=== PATIENT | female | born 1980 | race Caucasian/White ===

== ENCOUNTER 2017-05-17 09:12 | Inpatient (IN) | payer MEDICAID ==
[2017-05-17] MEDS ORDERED: Sodium Chloride 0.9% 10 ML Syringe FLUSH PRN (09:47)
[2017-05-17] MEDS ORDERED: Lactated Ringers 1,000 ML IV ONE (09:50)
--- NOTE | 2017-05-17 09:57 | PCM.LDHP ---
L&D History of Present Illness - General Date of Service: 05/17/17 Admit Problem/Dx: Patient Status Order with Admit Dx/Problem 05/17/17 09:47 Patient Status [ADT] Routine Admission Diagnosis/Problem Admission Diagnosis/Problem Source of Information: Patient History Limitations: Reports: No Limitations - History of Present Illness Improves with: Reports: None Worsens with: Reports: None Associated Symptoms: Reports: N - Related Data Allergies/Adverse Reactions: Allergies Allergy/AdvReac Type Severity Reaction Status Date / Time latex Allergy Hives Verified 07/24/14 13:00 meperidine HCl [From Demerol] Allergy Hives Verified 07/24/14 13:00 Home Medications: Home Meds * Vitamin 2 tab PO DAILY 12/26/13 [History] Triamcinolone Acetonide [Triamcinolone Acetonide 0.1% Crm] 15 gm .XX DAILY PRN 07/15/14 [History] Docusate Sodium [Colace] 100 mg PO TIDMEALS 05/15/17 [History] Social & Family History - Tobacco Use Smoking Status *Q: Current Every Day Smoker Years of Tobacco use: 17 Used Tobacco, but Quit: No Second Hand Smoke Exposure: Yes - Alcohol Use Days Per Week of Alcohol Use: 0 - Recreational Drug Use Recreational Drug Use: Yes Drug Use in Last 12 Months: Yes Recreational Drug Type: Reports: Marijuana/Hashish Recreational Drug Use Frequency: Socially H&P Review of Systems - Review of Systems: Review Of Systems: See Below General: Reports: No Symptoms HEENT: Reports: No Symptoms Pulmonary: Reports: No Symptoms Cardiovascular: Reports: No Symptoms Gastrointestinal: Reports: No Symptoms Genitourinary: Reports: No Symptoms Musculoskeletal: Reports: No Symptoms Skin: Reports: No Symptoms Psychiatric: Reports: No Symptoms Neurological: Reports: No Symptoms Hematologic/Lymphatic: Reports: No Symptoms Immunologic: Reports: No Symptoms L&D Exam - Exam Exam: See Below - OB Specific Contraction Intensity: Moderate Movement: Active Heart Tones: Present Presentation: Vertex - Pugh Score Pugh Score Cervix Position: Anterior Pugh Score Consistency: Soft Pugh Score Effacement: >80% Pugh Score Dilation: 3-4 cm Pugh Score Infant's Station: -1 ,0 Pugh Score Total: 11 - Exam General: Alert, Oriented HEENT: PERRLA, Conjunctiva Clear, EACs Clear, EOMI, Hearing Intact, Mucosa Moist & [place], Nares Patent, Normal Nasal Septum, Posterior Pharynx Clear, TMs Clear Neck: Supple, Trachea Midline Lungs: Clear to Auscultation, Normal Respiratory Effort Cardiovascular: Regular Rate, Regular Rhythm GI/Abdominal Exam: Normal Bowel Sounds, Soft, Non-Tender, No Organomegaly, No Distention, No Abnormal Bruit, No Mass, Pelvis Stable Rectal Exam: Normal Exam, Normal Rectal Tone Genitourinary: Normal external exam, Normal bimanual exam, Normal speculum exam Back Exam: Normal Inspection, Full Range of Motion Extremities: Normal Inspection, Normal Range of Motion, Non-Tender, No Pedal Edema, Normal Capillary Refill Skin: Warm, Dry, Intact Neurological: Cranial Nerves Intact, Reflexes Equal Bilateral Psychiatric: Alert, Normal Affect, Normal Mood - Problem List (1) SNOMED Code(s): 67439118 ICD Code: Z34.90 - ENCNTR FOR SUPRVSN OF NORMAL , UNSP, UNSP TRIMESTER Status: Acute Current Visit: Yes Qualifiers: Weeks of gestation: 40 weeks Qualified Code(s): Z3A.40 - 40 weeks gestation of (2) Positive GBS test SNOMED Code(s): 0303309921645 ICD Code: B95.1 - STREPTOCOCCUS, GROUP B, CAUSING DISEASES CLASSD ELSWHR Status: Acute Priority: High Current Visit: Yes Problem List Initiated/Reviewed/Updated: Yes Orders Last 24hrs: Active Orders 24 hr Category Date Time Status Patient Status [ADT] Routine ADT 05/17/17 09:47 Ordered Communication Order [RC] ASDIRECTED Care 05/17/17 09:47 Ordered Heart Tones [RC] PER UNIT ROUTINE Care 05/17/17 09:47 Ordered Local Anesthetic Infusion Pump [RC] ASDIRECTED Care 05/17/17 09:50 Ordered Notify Provider Vital Signs [RC] PRN Care 05/17/17 09:47 Ordered Notify Provider [RC] PRN Care 05/17/17 09:47 Ordered OB Check [OM.PC] Click to Edit Care 05/17/17 09:35 Ordered PCEA Epidural [RC] ASDIRECTED Care 05/17/17 09:50 Ordered Up ad Maria T [RC] ASDIRECTED Care 05/17/17 09:47 Ordered Vital Signs [RC] PER UNIT ROUTINE Care 05/17/17 09:47 Ordered CBC WITH AUTO DIFF [HEME] Routine Lab 05/17/17 09:40 Received DRUG SCREEN, URINE [URCHEM] Routine Lab 05/17/17 09:40 Received UA W/MICROSCOPIC [URIN] Routine Lab 05/17/17 09:40 Received Lactated Ringers [Ringers, Lactated] 1,000 ml Med 05/17/17 09:50 Ordered IV .BOLUS Penicillin G Potassium [Pfizerpen] 2.5 millunits Med 05/17/17 14:00 Active Sodium Chloride 0.9% [Normal Saline] 50 ml IV Q4H Penicillin G Potassium [Pfizerpen] 5 millunits Med 05/17/17 10:00 Active Sodium Chloride 0.9% [Normal Saline] 50 ml IV ONETIME Sodium Chloride 0.9% [Saline Flush] Med 05/17/17 09:47 Ordered 10 ml FLUSH ASDIRECTED PRN Epidural Catheter Management [OM.PC] Routine Oth 05/17/17 09:50 Ordered Saline Lock Insert [OM.PC] Routine Oth 05/17/17 09:47 Ordered Resuscitation Status Routine Resus Stat 05/17/17 09:47 Ordered Medication Orders Penicillin G Potassium 5 (millunits/ Sodium Chloride) 50 mls @ 100 mls/hr IV ONETIME ONE Stop: 05/17/17 10:29 Penicillin G Potassium 2.5 (millunits/ Sodium Chloride) 50 mls @ 100 mls/hr IV Q4H SHELBI Lactated Ringer's (Ringers, Lactated) 1,000 mls @ 999 mls/hr IV .BOLUS ONE Stop: 05/17/17 10:50 Sodium Chloride (Saline Flush) 10 ml FLUSH ASDIRECTED PRN PRN Reason: Keep Vein Open Assessment/Plan Comment:: 05/17/2017 36 yo at 40 0/7 gestational weeks presented to L&D in active labor SVE-4-5/90/-1 bulgy bag of carr GBS positive Plan- Monitor labor Monitor FHTs Patient may have an epidural per her request PCN G starting now for GBS positive Anticipate and plan for a vaginal delivery.
[2017-05-17] MEDS ORDERED: Penicillin G Potassium 5 MILLUNITS in Sodium Chloride 0.9% 50 ML IV ONE (10:00)
[2017-05-17] MEDS ORDERED: Lactated Ringers 1,000 ML IV SCH (11:30)
--- NOTE | 2017-05-17 12:21 | PCM.PNLD ---
Labor Progress Note - VS & Meds Vital Signs: Last Vital Signs Temp 36.5 C 05/17/17 09:45 Pulse 70 05/17/17 10:44 Resp 18 05/17/17 10:44 BP 117/72 05/17/17 10:44 Pulse Ox 98 05/17/17 10:44 Active Medications: Current Medications Penicillin G Potassium 2.5 (millunits/ Sodium Chloride) 50 mls @ 100 mls/hr IV Q4H SHELBI Oxytocin/Sodium Chloride (Pitocin In Ns 20 Units/1,000 Ml) 20 unit in 1,000 mls @ 6 mls/hr IV TITRATE SHELBI; 2 MUNITS/MIN PRN Reason: Protocol Sodium Chloride (Saline Flush) 10 ml FLUSH ASDIRECTED PRN PRN Reason: Keep Vein Open Last Admin: 05/17/17 11:03 Dose: 10 ml Discontinued Medications Penicillin G Potassium 5 (millunits/ Sodium Chloride) 50 mls @ 100 mls/hr IV ONETIME ONE Stop: 05/17/17 10:29 Last Admin: 05/17/17 09:52 Dose: 100 mls/hr Lactated Ringer's (Ringers, Lactated) 1,000 mls @ 999 mls/hr IV .BOLUS ONE Stop: 05/17/17 10:50 Last Admin: 05/17/17 09:37 Dose: 999 mls/hr - Uterine Contractions Uterine Monitoring Mode: External [place] Contraction Frequency (min): 5 Contraction Duration (sec): 60 Contraction Intensity: Strong Uterine Resting Tone: Soft - Monitoring Monitor Mode: External Ultrasound Heart Rate (FHR) Variability: Moderate (6-25 bmp) Accelerations: Present, 15x15 Decelerations: None - Vaginal Exam Dilation (cm): 5-6 Effacement (Percent): 80 Station: -1 Cervical Position: Midposition Sterile Vaginal Exam Performed By: Mona Diaz Vaginal Exam Comment: Still can push head away - Labor Progress (Free Text) Labor Progress: 05/17/2017 Progressing nicely in labor. Epidural in place and patient is comfortable. First dose of antibiotics in for GBS positive SVE-5-6/80/-1--2 Plan- Continue to monitor labor contractions still irregular Continue to monitor heart tones Start pitocin to better apply head to cervix then will AROM Continue Epidural for pain management Continue PCN G for GBS status Anticipate and plan for a vaginal delivery
[2017-05-17] MEDS ORDERED: Ondansetron 4 MG/2 ML SDV IVPUSH PRN (12:26)
[2017-05-17] MEDS ORDERED: Lanolin 100% Cream 40 GM Tube TOP PRN (15:18)
[2017-05-17] MEDS ORDERED: Acetaminophen 325 MG Tab PO PRN (15:18)
[2017-05-17] MEDS ORDERED: Ibuprofen 600 MG Tab PO PRN (15:18)
[2017-05-17] MEDS ORDERED: Acetaminophen 325 MG Tab, 50 Tab Bulk Bottle PO PRN (15:48)
[2017-05-17] MEDS ORDERED: Ibuprofen 200 MG Tab, 24 Tab Bulk Bottle PO PRN (15:48)
--- NOTE | 2017-05-17 15:58 | PCM.DEL ---
L & D Note - General Info Date of Service: 05/17/17 Mother's Due Date: 05/17/17 - Delivery Note Labor: Spontaneous Delivery Method: Spontaneous Vaginal Delivery-Single Delivery Mode: Spontaneous Presentation: Right Occiput Posterior (ROP) Nuchal Cord: Present (times two), Reduced Anesthesia Type: None Amniotic Fluid Description: Meconium Stained Episiotomy Type: None Laceration: None Placenta: Intact, Spontaneous Cord: 3 Vessels Estimated Blood Loss: 300 Resuscitation Needed: No : Bulb Syringe, Stimulated, Warmed, [place] Used Score 1 min: 9 Score 5 min: 10 Score 10 min: 10 Second Stage Interventions: Reports: Encouragement Given, Pushing Effectively Delivery Comments (Free Text/Narrative):: 05/17/2017 36 yo G5 now P3 at 40 0/7 gestational weeks delivered a viable female infant in ROP position with double nuchal reduced, on 05/17/2017 at 1356. APGARS-9/10/10, weight-7lbs 0oz, length-19 inches, infant placed on warm blanket on mothers abdomen, cord double clamped by provider and cord cut by father of infant, infant bulb suctioned, stimulated, dried, and warmed. Placenta delivered spontaneous, intact. EBL-300ml. No lacerations noted of perineum, vagina, cervix, or rectum. Infant now skin to skin and in room on mother both are stable at this time. - General Info Date of Service: 05/17/17 Admission Dx/Problem (Free Text): Patient Status Order with Admit Dx/Problem 05/17/17 09:47 Patient Status [ADT] Routine Admission Diagnosis/Problem Admission Diagnosis/Problem Functional Status: Reports: Pain Controlled - Review of Systems General: Reports: No Symptoms HEENT: Reports: No Symptoms Pulmonary: Reports: No Symptoms Cardiovascular: Reports: No Symptoms Gastrointestinal: Reports: No Symptoms Genitourinary: Reports: No Symptoms Musculoskeletal: Reports: No Symptoms Skin: Reports: No Symptoms Neurological: Reports: No Symptoms Psychiatric: Reports: No Symptoms - Patient Data Vitals - Most Recent: Last Vital Signs Temp 35.9 C 05/17/17 11:01 Pulse 67 05/17/17 12:15 Resp 16 05/17/17 12:15 BP 108/67 05/17/17 12:15 Pulse Ox 99 05/17/17 12:15 Weight - Most Recent: 102.512 kg I&O - Last 24 Hours: Intake & Output 05/17/17 05/17/17 05/17/17 06:59 14:59 22:59 Intake Total 210 Output Total 350 Balance -140 Lab Results Last 24 Hours: Laboratory Results - last 24 hr 05/17/17 05/17/17 05/17/17 Range/Units 09:40 09:40 09:40 WBC 13.7 H (4.5-11.0) K/uL RBC 4.41 (3.30-5.50) M/uL Hgb 11.8 L (12.0-15.0) g/dL Hct 35.7 L (36.0-48.0) % MCV 81 (80-98) fL MCH 27 (27-31) pg MCHC 33 (32-36) % Plt Count 388 (150-400) K/uL Neut % (Auto) 64 (36-66) % Lymph % (Auto) 27 (24-44) % [place] % (Auto) 7 H (2-6) % Eos % (Auto) 1 L (2-4) % Baso % (Auto) 0 (0-1) % Urine Color Yellow Urine Appearance Slightly cloudy Urine pH 6.0 (4.5-8.0) Ur Specific [place] 1.015 (1.008-1.030) Urine Protein Trace (NEGATIVE) mg/dL Urine Glucose (UA) Normal (NEGATIVE) mg/dL Urine Ketones Negative (NEGATIVE) mg/dL Urine Occult Blood Negative (NEGATIVE) Urine Nitrite Negative (NEGATIVE) Urine Bilirubin Negative (NEGATIVE) Urine Urobilinogen Normal (NORMAL) mg/dL Ur Leukocyte Esterase Negative (NEGATIVE) Urine RBC 0-5 (0-5) Urine WBC 0-5 (0-5) Ur Epithelial Cells Few Amorphous Sediment Not seen Urine Bacteria Few Urine Mucus Few Urine Opiates Screen Negative (NEGATIVE) Ur Oxycodone Screen Negative (NEGATIVE) Urine Methadone Screen Negative (NEGATIVE) Ur Propoxyphene Screen Negative (NEGATIVE) Ur Barbiturates Screen Negative (NEGATIVE) Ur Tricyclics Screen Negative (NEGATIVE) Ur Phencyclidine Scrn Negative (NEGATIVE) Ur Amphetamine Screen Negative (NEGATIVE) U Methamphetamines Scrn Negative (NEGATIVE) Urine MDMA Screen Negative (NEGATIVE) U Benzodiazepines Scrn Negative (NEGATIVE) U Cocaine Metab Screen Negative (NEGATIVE) U Marijuana (THC) Screen Positive H (NEGATIVE) Med Orders - Current: Current Medications Acetaminophen (Tylenol) 650 mg PO Q4H PRN PRN Reason: mild pain or fever Acetaminophen (Tylenol Bulk Bottle) 325 mg PO Q4H PRN PRN Reason: Pain Hydrocodone Bitart/Acetaminophen ([place] 325-5 Mg) 1 tab PO Q4H PRN PRN Reason: Pain (moderate 4-6) Docusate Sodium (Colace) 100 mg PO BID PRN PRN Reason: Constipation Emollient Ointment (Lansinoh Hpa) 1 gm TOP ASDIRECTED PRN PRN Reason: Sore Nipples Penicillin G Potassium 2.5 (millunits/ Sodium Chloride) 50 mls @ 100 mls/hr IV Q4H SHELBI Oxytocin/Sodium Chloride (Pitocin In Ns 20 Units/1,000 Ml) 20 unit in 1,000 mls @ 6 mls/hr IV TITRATE SHELBI; 2 MUNITS/MIN PRN Reason: Protocol Last Titration: 05/17/17 13:44 Dose: 12 mls/hr Lactated Ringer's (Ringers, Lactated) 1,000 mls @ 100 mls/hr IV ASDIRECTED SHELBI Last Admin: 05/17/17 11:30 Dose: 100 mls/hr Ibuprofen (Motrin) 600 mg PO Q6H PRN PRN Reason: mild pain or fever Ibuprofen (Motrin Bulk Bottle) 600 mg PO Q6H PRN PRN Reason: Pain Ondansetron HCl (Zofran) 4 mg IVPUSH Q4H PRN PRN Reason: Nausea/Vomiting Last Admin: 05/17/17 12:45 Dose: 4 mg Sodium Chloride (Saline Flush) 10 ml FLUSH ASDIRECTED PRN PRN Reason: Keep Vein Open Last Admin: 05/17/17 11:03 Dose: 10 ml Discontinued Medications Penicillin G Potassium 5 (millunits/ Sodium Chloride) 50 mls @ 100 mls/hr IV ONETIME ONE Stop: 05/17/17 10:29 Last Admin: 05/17/17 09:52 Dose: 100 mls/hr Lactated Ringer's (Ringers, Lactated) 1,000 mls @ 999 mls/hr IV .BOLUS ONE Stop: 05/17/17 10:50 Last Admin: 05/17/17 09:37 Dose: 999 mls/hr - Exam General: Alert, Oriented HEENT: Pupils Equal, Pupils Reactive, EOMI, Mucous Membr. Moist/[place] Neck: Supple Lungs: Clear to Auscultation, Normal Respiratory Effort Cardiovascular: Regular Rate, Regular Rhythm GI/Abdominal Exam: Normal Bowel Sounds, Soft, Non-Tender, No Organomegaly, No Distention, No Abnormal Bruit, No Mass, Pelvis Stable (Female) Exam: Normal External Exam, Normal Speculum Exam, Normal Bimanual Exam Back Exam: Normal Inspection, Full Range of Motion Extremities: Normal Inspection, Normal Range of Motion, Non-Tender, No Pedal Edema, Normal Capillary Refill Skin: Warm, Dry, Intact Wound/Incisions: Healing Well Neurological: No New Focal Deficit Psy/Mental Status: Alert, Normal Affect, Normal Mood - Problem List & Annotations (1) SNOMED Code(s): 87574953 Code(s): Z34.90 - ENCNTR FOR SUPRVSN OF NORMAL , UNSP, UNSP TRIMESTER Status: Acute Current Visit: Yes Qualifiers: Weeks of gestation: 40 weeks Qualified Code(s): Z3A.40 - 40 weeks gestation of (2) Positive GBS test SNOMED Code(s): 4733982385715 Code(s): B95.1 - STREPTOCOCCUS, GROUP B, [facility] Status: Acute Priority: High Current Visit: Yes (3) Normal vaginal delivery SNOMED Code(s): 27731823 Code(s): O80 - ENCOUNTER FOR FULL-TERM UNCOMPLICATED DELIVERY Status: Acute Current Visit: Yes (4) Spontaneous rupture of membranes SNOMED Code(s): 342444542 Code(s): GXU0078 - Status: Acute Current Visit: No - Problem List Review Problem List Initiated/Reviewed/Updated: Yes - My Orders Last 24 Hours: My Active Orders 05/17/17 09:35 OB Check [OM.PC] Click to Edit 05/17/17 09:47 Patient Status [ADT] Routine Communication Order [RC] ASDIRECTED Heart Tones [RC] PER UNIT ROUTINE Notify Provider Vital Signs [RC] PRN Notify Provider [RC] PRN Up ad Maria T [RC] ASDIRECTED Vital Signs [RC] PER UNIT ROUTINE Sodium Chloride 0.9% [Saline Flush] 10 ml FLUSH ASDIRECTED PRN Saline Lock Insert [OM.PC] Routine Resuscitation Status Routine 05/17/17 09:50 PCEA Epidural [RC] ASDIRECTED Epidural Catheter Management [OM.PC] Routine 05/17/17 09:57 Ambulate [RC] PER UNIT ROUTINE VTE/DVT Education [RC] Click to Edit DVT/VTE Prophylaxis Reflex [OM.PC] Routine 05/17/17 11:30 Lactated Ringers [Ringers, Lactated] 1,000 ml IV ASDIRECTED 05/17/17 12:15 Oxytocin/Normal Saline [Pitocin in NS 20 Units/1,000 ML] 20 unit in 1,000 ml IV TITRATE 05/17/17 12:20 Insert Streeter Catheter [Insert Urinary Catheter] [OM.PC] Q24H 05/17/17 12:26 Ondansetron [Zofran] 4 mg IVPUSH Q4H PRN 05/17/17 13:14 Urinary Catheter Assessment [RC] ASDIRECTED 05/17/17 14:00 Penicillin G Potassium [Pfizerpen] 2.5 millunits Sodium Chloride 0.9% [Normal Saline] 50 ml IV Q4H 05/17/17 15:18 May Shower [RC] ASDIRECTED Acetaminophen [Tylenol] 650 mg PO Q4H PRN Acetaminophen/HYDROcodone [[place] 325-5 MG] 1 tab PO Q4H PRN Docusate Sodium [Colace] 100 mg PO BID PRN Ibuprofen [Motrin] 600 mg PO Q6H PRN Lanolin [Lansinoh HPA] 1 gm TOP ASDIRECTED PRN Assess Lochia [WOMSER] Per Unit Routine Assess Uterine Involution [WOMSER] Per Unit Routine 05/17/17 15:21 Patient Status [ADT] Routine Vital Signs [RC] PFP 05/17/17 15:23 Perineal Care [OM.PC] Per Unit Routine 05/17/17 15:48 Acetaminophen [Tylenol Bulk Bottle] 325 mg PO Q4H PRN Ibuprofen [Motrin Bulk Bottle] 600 mg PO Q6H PRN 05/17/17 Dinner Regular Diet [DIET] 05/18/17 06:00 CBC WITH AUTO DIFF [HEME] Routine - Assessment Assessment:: 05/17/2017 36 yo G5 now P3 had a @ 40 0/7 gestational weeks without complications Labs-GBS positive, O positive, Rubella Immune, RPR nonreactive, Hep B negative, HIV negative, THC positive - Plan Plan:: 05/17/2017 36 yo at 40 0/7 gestational weeks presented to L&D in active labor SVE-4-/-1 bulgy bag of carr GBS positive Plan- Monitor labor Monitor FHTs Patient may have an epidural per her request PCN G starting now for GBS positive Anticipate and plan for a vaginal delivery. 05/17/2017 Routine Cares Encourage and support Plan discharge at 48 hrs due to GBS positive
[2017-05-17] MEDS ORDERED: Ropivacaine 100 ML ONE (17:18)
[2017-05-17] MEDS ORDERED: fentaNYL 100 MCG/2 ML SDV ONE (17:18)
[2017-05-17] MEDS: Penicillin G Potassium 2.5 MILLUNITS in Sodium Chloride 0.9% 50 ML IV SCH ×2 (18:18→18:59)
[2017-05-17] MEDS: Acetaminophen/HYDROcodone 325-5 MG Tab PO PRN (19:16)
--- NOTE | 2017-05-17 19:24 | ANES ---
DATE OF SERVICE: 05/17/2017 INDICATIONS: This 36-year-old is in labor, and Mona Diaz has ordered in for an epidural be placed for labor pain. I discussed the risks and benefits with the patient. She has understanding of these and signed an informed consent. Her health history is as per Ms. Diaz's H and P. TECHNIQUE: The patient was placed in a sitting position on the bed. Her back was prepped with Betadine x3. She was given a 2 mm skin wheal of 1% Xylocaine at approximately L4-5 and another 2 to 3 mL into the deeper tissue. A 17-gauge Tuohy epidural needle was placed into the epidural space at that level using a loss resistance technique. I was unable to aspirate blood, fluid, or air from the epidural needle and proceeded to give her a test dose/bolus of 6 mL which include 5 mL of 0.5% Xylocaine with epinephrine and 2 mL of preservative-free fentanyl. An epidural catheter was then threaded into the epidural space approximately 4 cm. The needle was removed over the epidural catheter. The epidural catheter was then attached to an infusion pump for 0.2% ropivacaine at 12 mL/hour. This was confirmed with the nurse in attendance. The patient tolerated this procedure well. Her vital signs were stable. Her color was pink. She was alert, oriented, showed no signs of complications, and the Anesthesia Service will be contacted if they need further assistance. NAME OF PROCEDURE: Labor epidural. Antonio Blackmon CRNA /[id number]
[2017-05-18] MEDS: Acetaminophen/HYDROcodone 325-5 MG Tab PO PRN ×5 (01:14→20:22)
[2017-05-18] MEDS: Docusate Sodium 100 MG Cap PO PRN ×2 (05:17→20:22)
--- NOTE | 2017-05-18 08:19 | PCM.PNPP ---
- General Info Date of Service: 05/18/17 Admission Dx/Problem (Free Text): Patient Status Order with Admit Dx/Problem 05/17/17 09:47 Patient Status [ADT] Routine Admission Diagnosis/Problem Admission Diagnosis/Problem Functional Status: Reports: Pain Controlled - Review of Systems General: Reports: No Symptoms HEENT: Reports: No Symptoms Pulmonary: Reports: No Symptoms Cardiovascular: Reports: No Symptoms Gastrointestinal: Reports: No Symptoms Genitourinary: Reports: No Symptoms Musculoskeletal: Reports: No Symptoms Skin: Reports: No Symptoms Neurological: Reports: No Symptoms Psychiatric: Reports: No Symptoms - General Info Date of Service: 05/18/17 - Patient Data Vital Signs - Most Recent: Last Vital Signs Temp 36.7 C 05/18/17 03:55 Pulse 54 L 05/18/17 03:55 Resp 18 05/18/17 03:55 BP 124/71 05/18/17 03:55 Pulse Ox 99 05/18/17 03:55 Weight - Most Recent: 102.512 kg I&O - Last 24 Hours: Intake & Output 05/17/17 05/18/17 05/18/17 22:59 06:59 14:59 Intake Total 1050 Balance 1050 Lab Results - Last 24 Hours: Laboratory Results - last 24 hr 05/17/17 05/17/17 05/17/17 Range/Units 09:40 09:40 09:40 WBC 13.7 H (4.5-11.0) K/uL RBC 4.41 (3.30-5.50) M/uL Hgb 11.8 L (12.0-15.0) g/dL Hct 35.7 L (36.0-48.0) % MCV 81 (80-98) fL MCH 27 (27-31) pg MCHC 33 (32-36) % Plt Count 388 (150-400) K/uL Neut % (Auto) 64 (36-66) % Lymph % (Auto) 27 (24-44) % Mclennan % (Auto) 7 H (2-6) % Eos % (Auto) 1 L (2-4) % Baso % (Auto) 0 (0-1) % Urine Color Yellow Urine Appearance Slightly cloudy Urine pH 6.0 (4.5-8.0) Ur Specific Arlee 1.015 (1.008-1.030) Urine Protein Trace (NEGATIVE) mg/dL Urine Glucose (UA) Normal (NEGATIVE) mg/dL Urine Ketones Negative (NEGATIVE) mg/dL Urine Occult Blood Negative (NEGATIVE) Urine Nitrite Negative (NEGATIVE) Urine Bilirubin Negative (NEGATIVE) Urine Urobilinogen Normal (NORMAL) mg/dL Ur Leukocyte Esterase Negative (NEGATIVE) Urine RBC 0-5 (0-5) Urine WBC 0-5 (0-5) Ur Epithelial Cells Few Amorphous Sediment Not seen Urine Bacteria Few Urine Mucus Few Urine Opiates Screen Negative (NEGATIVE) Ur Oxycodone Screen Negative (NEGATIVE) Urine Methadone Screen Negative (NEGATIVE) Ur Propoxyphene Screen Negative (NEGATIVE) Ur Barbiturates Screen Negative (NEGATIVE) Ur Tricyclics Screen Negative (NEGATIVE) Ur Phencyclidine Scrn Negative (NEGATIVE) Ur Amphetamine Screen Negative (NEGATIVE) U Methamphetamines Scrn Negative (NEGATIVE) Urine MDMA Screen Negative (NEGATIVE) U Benzodiazepines Scrn Negative (NEGATIVE) U Cocaine Metab Screen Negative (NEGATIVE) U Marijuana (THC) Screen Positive H (NEGATIVE) 05/18/17 Range/Units 04:00 WBC 15.9 H (4.5-11.0) K/uL RBC 4.18 (3.30-5.50) M/uL Hgb 11.4 L (12.0-15.0) g/dL Hct 34.4 L (36.0-48.0) % MCV 82 (80-98) fL MCH 27 (27-31) pg MCHC 33 (32-36) % Plt Count 333 (150-400) K/uL Neut % (Auto) 74 H (36-66) % Lymph % (Auto) 19 L (24-44) % Mclennan % (Auto) 6 (2-6) % Eos % (Auto) 1 L (2-4) % Baso % (Auto) 0 (0-1) % Urine Color Urine Appearance Urine pH (4.5-8.0) Ur Specific Arlee (1.008-1.030) Urine Protein (NEGATIVE) mg/dL Urine Glucose (UA) (NEGATIVE) mg/dL Urine Ketones (NEGATIVE) mg/dL Urine Occult Blood (NEGATIVE) Urine Nitrite (NEGATIVE) Urine Bilirubin (NEGATIVE) Urine Urobilinogen (NORMAL) mg/dL Ur Leukocyte Esterase (NEGATIVE) Urine RBC (0-5) Urine WBC (0-5) Ur Epithelial Cells Amorphous Sediment Urine Bacteria Urine Mucus Urine Opiates Screen (NEGATIVE) Ur Oxycodone Screen (NEGATIVE) Urine Methadone Screen (NEGATIVE) Ur Propoxyphene Screen (NEGATIVE) Ur Barbiturates Screen (NEGATIVE) Ur Tricyclics Screen (NEGATIVE) Ur Phencyclidine Scrn (NEGATIVE) Ur Amphetamine Screen (NEGATIVE) U Methamphetamines Scrn (NEGATIVE) Urine MDMA Screen (NEGATIVE) U Benzodiazepines Scrn (NEGATIVE) U Cocaine Metab Screen (NEGATIVE) U Marijuana (THC) Screen (NEGATIVE) Med Orders - Current: Current Medications Acetaminophen (Tylenol) 650 mg PO Q4H PRN PRN Reason: mild pain or fever Acetaminophen (Tylenol Bulk Bottle) 325 mg PO Q4H PRN PRN Reason: Pain Hydrocodone Bitart/Acetaminophen (Hensel 325-5 Mg) 1 tab PO Q4H PRN PRN Reason: Pain (moderate 4-6) Last Admin: 05/18/17 05:16 Dose: 1 tab Docusate Sodium (Colace) 100 mg PO BID PRN PRN Reason: Constipation Last Admin: 05/18/17 05:17 Dose: 100 mg Emollient Ointment (Lansinoh Hpa) 1 gm TOP ASDIRECTED PRN PRN Reason: Sore Nipples Oxytocin/Sodium Chloride (Pitocin In Ns 20 Units/1,000 Ml) 20 unit in 1,000 mls @ 6 mls/hr IV TITRATE SHELBI; 2 MUNITS/MIN PRN Reason: Protocol Last Titration: 05/17/17 13:44 Dose: 12 mls/hr Lactated Ringer's (Ringers, Lactated) 1,000 mls @ 100 mls/hr IV ASDIRECTED SHELBI Last Admin: 05/17/17 11:30 Dose: 100 mls/hr Ibuprofen (Motrin) 600 mg PO Q6H PRN PRN Reason: mild pain or fever Ibuprofen (Motrin Bulk Bottle) 600 mg PO Q6H PRN PRN Reason: Pain Ondansetron HCl (Zofran) 4 mg IVPUSH Q4H PRN PRN Reason: Nausea/Vomiting Last Admin: 05/17/17 12:45 Dose: 4 mg Sodium Chloride (Saline Flush) 10 ml FLUSH ASDIRECTED PRN PRN Reason: Keep Vein Open Last Admin: 05/17/17 11:03 Dose: 10 ml Discontinued Medications Fentanyl (Sublimaze) Confirm Administered Dose 100 mcg .ROUTE .STK-MED ONE Stop: 05/17/17 17:19 Penicillin G Potassium 5 (millunits/ Sodium Chloride) 50 mls @ 100 mls/hr IV ONETIME ONE Stop: 05/17/17 10:29 Last Admin: 05/17/17 09:52 Dose: 100 mls/hr Penicillin G Potassium 2.5 (millunits/ Sodium Chloride) 50 mls @ 100 mls/hr IV Q4H SHELBI Last Admin: 05/17/17 18:59 Dose: Not Given Lactated Ringer's (Ringers, Lactated) 1,000 mls @ 999 mls/hr IV .BOLUS ONE Stop: 05/17/17 10:50 Last Admin: 05/17/17 09:37 Dose: 999 mls/hr Ropivacaine (Naropin 0.2%) Confirm Administered Dose 100 mls @ as directed .ROUTE .STK-MED ONE Stop: 05/17/17 17:19 - Infant Interaction Disposition, : [place] in Room with Family Interaction: Holding Infant Infant Feeding: Breastfed ; Nursed Well, Continues to Breastfeed Support Person: - Recovery Exam Fundal Tone: Firm Fundal Level: At Umbilicus Fundal Placement: Midline Lochia Amount: Small Lochia Color: Rubra/Red Perineum Description: Intact, Minimal Bruising/Swelling Episiotomy/Laceration: None Bladder Status: Voiding Urinary Elimination: Voided - Exam General: Alert, Oriented HEENT: Pupils Equal Neck: Supple Lungs: Clear to Auscultation, Normal Respiratory Effort Cardiovascular: Regular Rate, Regular Rhythm GI/Abdominal Exam: Normal Bowel Sounds, Soft, Non-Tender, No Organomegaly, No Distention, No Abnormal Bruit, No Mass, Pelvis Stable Extremities: Normal Inspection, Normal Range of Motion, Non-Tender, No Pedal Edema, Normal Capillary Refill Skin: Warm, Dry, Intact Wound/Incisions: Healing Well Neurological: No New Focal Deficit Psy/Mental Status: Alert, Normal Affect, Normal Mood - Problem List & Annotations (1) SNOMED Code(s): 62474902 Code(s): Z34.90 - ENCNTR FOR SUPRVSN OF NORMAL , UNSP, UNSP TRIMESTER Status: Acute Current Visit: Yes Qualifiers: Weeks of gestation: 40 weeks Qualified Code(s): Z3A.40 - 40 weeks gestation of (2) Positive GBS test SNOMED Code(s): 7150922585015 Code(s): B95.1 - STREPTOCOCCUS, GROUP B, CAUSING DISEASES CLASSD ELSWHR Status: Acute Priority: High Current Visit: Yes (3) Normal vaginal delivery SNOMED Code(s): 18079028 Code(s): O80 - ENCOUNTER FOR FULL-TERM UNCOMPLICATED DELIVERY Status: Acute Current Visit: Yes (4) Spontaneous rupture of membranes SNOMED Code(s): 328244040 Code(s): BKV0121 - Status: Acute Current Visit: No - Problem List Review Problem List Initiated/Reviewed/Updated: Yes - My Orders Last 24 Hours: My Active Orders 05/17/17 09:35 OB Check [OM.PC] Click to Edit 05/17/17 09:47 Patient Status [ADT] Routine Notify Provider Vital Signs [RC] PRN Up ad Maria T [RC] ASDIRECTED Sodium Chloride 0.9% [Saline Flush] 10 ml FLUSH ASDIRECTED PRN Saline Lock Insert [OM.PC] Routine Resuscitation Status Routine 05/17/17 09:50 Epidural Catheter Management [OM.PC] Routine 05/17/17 09:57 VTE/DVT Education [RC] Click to Edit DVT/VTE Prophylaxis Reflex [OM.PC] Routine 05/17/17 11:30 Lactated Ringers [Ringers, Lactated] 1,000 ml IV ASDIRECTED 05/17/17 12:15 Oxytocin/Normal Saline [Pitocin in NS 20 Units/1,000 ML] 20 unit in 1,000 ml IV TITRATE 05/17/17 12:20 Insert Streeter Catheter [Insert Urinary Catheter] [OM.PC] Q24H 05/17/17 12:26 Ondansetron [Zofran] 4 mg IVPUSH Q4H PRN 05/17/17 15:18 May Shower [RC] ASDIRECTED Acetaminophen [Tylenol] 650 mg PO Q4H PRN Acetaminophen/HYDROcodone [Hensel 325-5 MG] 1 tab PO Q4H PRN Docusate Sodium [Colace] 100 mg PO BID PRN Ibuprofen [Motrin] 600 mg PO Q6H PRN Lanolin [Lansinoh HPA] 1 gm TOP ASDIRECTED PRN Assess Lochia [WOMSER] Per Unit Routine Assess Uterine Involution [WOMSER] Per Unit Routine 05/17/17 15:21 Patient Status [ADT] Routine Vital Signs [RC] PFP 05/17/17 15:23 Perineal Care [OM.PC] Per Unit Routine 05/17/17 15:48 Acetaminophen [Tylenol Bulk Bottle] 325 mg PO Q4H PRN Ibuprofen [Motrin Bulk Bottle] 600 mg PO Q6H PRN 05/17/17 Dinner Regular Diet [DIET] - Assessment Assessment:: 05/17/2017 36 yo G5 now P3 had a @ 40 0/7 gestational weeks without complications Labs-GBS positive, O positive, Rubella Immune, RPR nonreactive, Hep B negative, HIV negative, THC positive --------- 05/18/2017 day one well Fundus firm and bleeding decreasing Hgb-11.4 GBS positive so discharge tomorrow - Plan Plan:: 05/17/2017 36 yo at 40 0/7 gestational weeks presented to L&D in active labor SVE--/-1 bulgy bag of carr GBS positive Plan- Monitor labor Monitor FHTs Patient may have an epidural per her request PCN G starting now for GBS positive Anticipate and plan for a vaginal delivery. 05/17/2017 Routine Cares Encourage and support Plan discharge at 48 hrs due to GBS positive 05/18/2017 Continue Routine Cares Continue to encourage and support Plan discharge at 48hrs due to GBS positive
[2017-05-19] MEDS: Acetaminophen/HYDROcodone 325-5 MG Tab PO PRN ×2 (02:19→07:21)
--- NOTE | 2017-05-19 07:09 | PCM.PNPP ---
- General Info Date of Service: 05/19/17 Functional Status: Reports: Pain Controlled - Review of Systems General: Reports: No Symptoms HEENT: Reports: No Symptoms Pulmonary: Reports: No Symptoms Cardiovascular: Reports: No Symptoms Gastrointestinal: Reports: No Symptoms Genitourinary: Reports: No Symptoms Musculoskeletal: Reports: No Symptoms Skin: Reports: No Symptoms Neurological: Reports: No Symptoms Psychiatric: Reports: No Symptoms - General Info Date of Service: 05/19/17 - Patient Data Vital Signs - Most Recent: Last Vital Signs Temp 37.2 C 05/18/17 21:00 Pulse 76 05/18/17 21:00 Resp 18 05/18/17 21:00 BP 134/83 05/18/17 21:00 Pulse Ox 97 05/18/17 21:00 Weight - Most Recent: 102.512 kg Med Orders - Current: Current Medications Acetaminophen (Tylenol) 650 mg PO Q4H PRN PRN Reason: mild pain or fever Acetaminophen (Tylenol Bulk Bottle) 325 mg PO Q4H PRN PRN Reason: Pain Hydrocodone Bitart/Acetaminophen ([place] 325-5 Mg) 1 tab PO Q4H PRN PRN Reason: Pain (moderate 4-6) Last Admin: 05/19/17 02:19 Dose: 1 tab Docusate Sodium (Colace) 100 mg PO BID PRN PRN Reason: Constipation Last Admin: 05/18/17 20:22 Dose: 100 mg Emollient Ointment (Lansinoh Hpa) 1 gm TOP ASDIRECTED PRN PRN Reason: Sore Nipples Last Admin: 05/18/17 16:25 Dose: 1 applic Oxytocin/Sodium Chloride (Pitocin In Ns 20 Units/1,000 Ml) 20 unit in 1,000 mls @ 6 mls/hr IV TITRATE SHELBI; 2 MUNITS/MIN PRN Reason: Protocol Last Titration: 05/17/17 13:44 Dose: 12 mls/hr Lactated Ringer's (Ringers, Lactated) 1,000 mls @ 100 mls/hr IV ASDIRECTED SHELBI Last Admin: 05/17/17 11:30 Dose: 100 mls/hr Ibuprofen (Motrin) 600 mg PO Q6H PRN PRN Reason: mild pain or fever Ibuprofen (Motrin Bulk Bottle) 600 mg PO Q6H PRN PRN Reason: Pain Influenza Virus Vaccine (Fluzone Quad [id number]) 60 mcg IM .ONCE ONE Stop: 05/19/17 10:01 Ondansetron HCl (Zofran) 4 mg IVPUSH Q4H PRN PRN Reason: Nausea/Vomiting Last Admin: 05/17/17 12:45 Dose: 4 mg Sodium Chloride (Saline Flush) 10 ml FLUSH ASDIRECTED PRN PRN Reason: Keep Vein Open Last Admin: 05/17/17 11:03 Dose: 10 ml Discontinued Medications Fentanyl (Sublimaze) Confirm Administered Dose 100 mcg .ROUTE .STK-MED ONE Stop: 05/17/17 17:19 Penicillin G Potassium 5 (millunits/ Sodium Chloride) 50 mls @ 100 mls/hr IV ONETIME ONE Stop: 05/17/17 10:29 Last Admin: 05/17/17 09:52 Dose: 100 mls/hr Penicillin G Potassium 2.5 (millunits/ Sodium Chloride) 50 mls @ 100 mls/hr IV Q4H SHELBI Last Admin: 05/17/17 18:59 Dose: Not Given Lactated Ringer's (Ringers, Lactated) 1,000 mls @ 999 mls/hr IV .BOLUS ONE Stop: 05/17/17 10:50 Last Admin: 05/17/17 09:37 Dose: 999 mls/hr Ropivacaine (Naropin 0.2%) Confirm Administered Dose 100 mls @ as directed .ROUTE .STK-MED ONE Stop: 05/17/17 17:19 Influenza Virus Vaccine (Pharmacy To Dose - Influenza Vaccine) 1 each IM ONETIME ONE Stop: 05/19/17 09:01 - Interaction Disposition, : in Room with Family Infant Interaction: Holding Infant Feeding: Breastfed Infant; Nursed Well, Continues to Breastfeed Support Person: - Recovery Exam Fundal Tone: Firm Fundal Level: At Umbilicus Fundal Placement: Left Lochia Amount: Scant Lochia Color: Alba/White Perineum Description: Intact, Minimal Bruising/Swelling Episiotomy/Laceration: None Bladder Status: Voiding Urinary Elimination: Voided - Exam General: Alert, Oriented HEENT: Pupils Equal Neck: Supple Lungs: Clear to Auscultation, Normal Respiratory Effort Cardiovascular: Regular Rate, Regular Rhythm GI/Abdominal Exam: Normal Bowel Sounds, Soft, Non-Tender, No Organomegaly, No Distention, No Abnormal Bruit, No Mass, Pelvis Stable Extremities: Normal Inspection, Normal Range of Motion, Non-Tender, No Pedal Edema, Normal Capillary Refill Skin: Warm, Dry, Intact Neurological: No New Focal Deficit Psy/Mental Status: Alert, Normal Affect, Normal Mood - Problem List & Annotations (1) SNOMED Code(s): 08789513 Code(s): Z34.90 - ENCNTR FOR SUPRVSN OF NORMAL , UNSP, UNSP TRIMESTER Status: Acute Current Visit: Yes Qualifiers: Weeks of gestation: 40 weeks Qualified Code(s): Z3A.40 - 40 weeks gestation of (2) Positive GBS test SNOMED Code(s): 5514456160031 Code(s): B95.1 - STREPTOCOCCUS, GROUP B, CAUSING DISEASES CLASSD ELSWHR Status: Acute Priority: High Current Visit: Yes (3) Normal vaginal delivery SNOMED Code(s): 17436650 Code(s): O80 - ENCOUNTER FOR FULL-TERM UNCOMPLICATED DELIVERY Status: Acute Current Visit: Yes (4) Spontaneous rupture of membranes SNOMED Code(s): 083465341 Code(s): CNY8157 - Status: Acute Current Visit: No - Problem List Review Problem List Initiated/Reviewed/Updated: Yes - My Orders Last 24 Hours: My Active Orders 05/19/17 10:00 FLU Vacc [id number] 36Mos UP/PF [Fluzone Quad [id number]] 60 mcg IM .ONCE ONE - Assessment Assessment:: 05/17/2017 36 yo G5 now P3 had a @ 40 0/7 gestational weeks without complications Labs-GBS positive, O positive, Rubella Immune, RPR nonreactive, Hep B negative, HIV negative, THC positive --------- 05/18/2017 day one well Fundus firm and bleeding decreasing Hgb-11.4 GBS positive so discharge tomorrow 05/19/2017 day two well Fundus firm and bleeding decreased Pain controlled with oral pain medication To see me in 6 weeks for visit Discharge home today at 48hrs for GBS positive - Plan Plan:: 05/17/2017 36 yo at 40 0/7 gestational weeks presented to L&D in active labor SVE-4-/-1 bulgy bag of carr GBS positive Plan- Monitor labor Monitor FHTs Patient may have an epidural per her request PCN G starting now for GBS positive Anticipate and plan for a vaginal delivery. 05/17/2017 Routine Cares Encourage and support Plan discharge at 48 hrs due to GBS positive 05/18/2017 Continue Routine Cares Continue to encourage and support Plan discharge at 48hrs due to GBS positive 05/19/2017 Continue Routine Cares Continue to encourage and support Make appt for 6 weeks visit Give flu shot before home today Discharge home today
[2017-05-19] MEDS ORDERED: Acetaminophen 325 MG Tab, 50 Tab Bulk Bottle PO PRN (08:05)
[2017-05-19] MEDS ORDERED: FLU Vacc QS 2017-18 (36mos UP)/PF 60 MCG/0.5 ML Syringe IM ONE (10:00)
[2017-05-19 11:11] VITALS: BP 134/90
== END 2017-05-19 13:40 | disposition home or self-care (01) | DRG 775 ==
LOC: JP.OBCHECK 09:12 → JP.OB 09:47 → OBSVTOIN 13:56 → JP.OB 13:56 → JP.MS 17:28
PROVIDERS: ADMIT Advanced Practice Midwife; ATTEND Advanced Practice Midwife
PROC: 10E0XZZ Delivery of Products of Conception, External Approach (ICD-10-PCS; principal; 2017-05-17)
PROC: 00HU33Z Insertion of Infusion Device into Spinal Canal, Percutaneous Approach (ICD-10-PCS; 2017-05-17)
DX: O99.824 Streptococcus B carrier state complicating childbirth (principal); O69.81X0 Labor and delivery complicated by cord around neck, without compression, not applicable or unspecified; O77.0 Labor and delivery complicated by meconium in amniotic fluid; O99.334 Smoking (tobacco) complicating childbirth; O99.324 Drug use complicating childbirth; F12.90 Cannabis use, unspecified, uncomplicated; Z3A.40 40 weeks gestation of pregnancy; Z37.0 Single live birth; Z91.040 Latex allergy status; Z88.5 Allergy status to narcotic agent
CPT/HCPCS: 36415; 51702; 59409; 80305; 81001; 85025; 90686; 99211; A9270-GY; J2405; J2540; J2590; J2795; J3010; J7050; J7120

== ENCOUNTER 2020-05-16 06:03 | Day surgery (SDC) | payer MEDICAID ==
[2020-05-16] MEDS ORDERED: Acetaminophen 500 MG Tab PO ONE (06:30)
[2020-05-16] MEDS: Bupivacaine 0.5%/EPINEPHrine 1:200,000 50 ML MDV ONE ×2 (06:55→08:30)
[2020-05-16] MEDS ORDERED: Dextrose 5%-Lactated Ringers 1,000 ML IV SCH (07:00)
[2020-05-16] MEDS ORDERED: Glycopyrrolate 0.2 MG/ML 5 ML MDV ONE (07:19)
[2020-05-16] MEDS ORDERED: Dexamethasone 4 MG/ML SDV ONE (07:19)
[2020-05-16] MEDS ORDERED: Succinylcholine 200 MG/10 ML MDV ONE (07:19)
[2020-05-16] MEDS ORDERED: Ondansetron 4 MG/2 ML SDV ONE (07:19)
[2020-05-16] MEDS ORDERED: Rocuronium 50 MG/5 ML Vial ONE (07:19)
[2020-05-16] MEDS ORDERED: Neostigmine Methylsulfate 1 MG/ML 5 ML Syringe ONE (07:19)
[2020-05-16] MEDS ORDERED: Propofol 200 MG/20 ML SDV ONE (07:19)
[2020-05-16] MEDS ORDERED: fentaNYL 250 MCG/5 ML SDV ONE ×2 (07:21→07:52)
[2020-05-16] MEDS ORDERED: cefOXitin 2 GM in Sodium Chloride 0.9% 50 ML IV ONE (07:30)
[2020-05-16] MEDS ORDERED: Ketamine 50 MG in Sodium Chloride 0.9% 49.5 ML IV SCH (07:30)
[2020-05-16] MEDS ORDERED: Ketamine 500 MG/5 ML MDV IV SCH (07:30)
[2020-05-16] MEDS ORDERED: hydrOXYzine HCL 100 MG/2 ML SDV IM ONE (08:47)
[2020-05-16] MEDS ORDERED: HYDROmorphone/Normal Saline 15 MG/30 ML PCA IV PRN (09:09)
[2020-05-16] MEDS ORDERED: Naloxone 0.4 MG/ML SDV IVPUSH PRN (09:09)
[2020-05-16] MEDS ORDERED: Naloxone 0.4 MG/ML SDV IV PRN (10:00)
[2020-05-16] MEDS: oxyCODONE 5 MG Tab PO PRN ×4 (10:42→23:25)
[2020-05-16] MEDS ORDERED: HYDROmorphone 0.5 MG/0.5 ML Syringe IVPUSH PRN (11:00)
[2020-05-16] MEDS ORDERED: Ondansetron 4 MG/2 ML SDV IVPUSH PRN (11:00)
[2020-05-16] MEDS ORDERED: HYDROmorphone 1 MG/ML Syringe IV PRN (11:00)
[2020-05-16] MEDS ORDERED: Pantoprazole 40 MG Vial IVPUSH SCH (12:00)
[2020-05-16] MEDS: cefOXitin 2 GM in Sodium Chloride 0.9% 50 ML IV SCH ×2 (14:55→20:13)
[2020-05-16] MEDS ORDERED: Docusate Sodium 100 MG Cap PO PRN (17:03)
[2020-05-17] MEDS: cefOXitin 2 GM in Sodium Chloride 0.9% 50 ML IV SCH ×2 (02:19→07:28)
[2020-05-17] MEDS: oxyCODONE 5 MG Tab PO PRN ×3 (03:26→10:34)
[2020-05-17 07:26] VITALS: BP 144/72; PULSE 54
--- NOTE | 2020-05-18 08:44 | DISCH ---
FINAL DIAGNOSES: 1. Subacute cholecystitis and cholelithiasis. 2. History of depression. 3. Mild obesity. OPERATIVE PROCEDURE: Done on 05/16, laparoscopic cholecystectomy. SUMMARY: This is a 39-year-old female presenting with increasing pain related to cholelithiasis and acute or subacute cholecystitis. The patient was admitted and underwent a cholecystectomy on 05/16. She had multiple large stones present in the gallbladder grossly consistent with a subacute cholecystitis. Postoperatively, she has done well and will be discharged home on her usual medications plus oxycodone 5 mg q.4 hours p.r.n. given earlier in anticipation of surgery being done yesterday. She will be on a regular diet. postoperative MOI drain likewise is nonbilious and will be removed. To follow up with Agnes Biggs in [facility] on 05/25/2020.
--- NOTE | 2020-05-24 12:45 | OR ---
DATE OF PROCEDURE: 05/16/2020 SURGEON: Ricardo Browne MD PREOPERATIVE DIAGNOSIS: Subacute cholecystitis and cholelithiasis. POSTOPERATIVE DIAGNOSIS: Subacute cholecystitis and cholelithiasis. PROCEDURE: Laparoscopic cholecystectomy (62793). ANESTHESIA: General. INDICATION FOR PROCEDURE: A 39-year-old presenting with significant ongoing right upper quadrant pain particularly in the postprandial period. Workup of this included an ultrasound which showed thickened gallbladder wall and cholelithiasis. Plan is to proceed with laparoscopic or if necessary open cholecystectomy. Potential risks including bleeding, infection, injury to common bile duct or other adjacent viscera, possible migration of stones in the common bile duct requiring additional procedures for correction were reviewed, and the patient wishes to proceed. DETAILS OF PROCEDURE: The patient was taken to the operating room, placed in the supine position. After general endotracheal anesthesia was induced, the abdomen was prepped and draped. A transverse epigastric incision was made and the peritoneal cavity was entered under direct vision with an Optiview trocar, inflated to 15 mmHg pressure of CO2. Laparoscope was reinserted. No underlying trocar insertion site injuries were seen. Following this, a 12 mm subumbilical trocar was placed along with 5 mm right subcostal trocar and the upper abdomen examined. As expected, gallbladder was noted to be thick- walled and whitish in appearance with quite a bit in the way of edema. The gallbladder was retracted anteriorly and laterally. Dissection began on the gallbladder neck with Harmonic scalpel, continued around the gallbladder neck and cystic duct junction. Once that area was well delineated, the gallbladder neck and cystic duct junction was felt to be quite thickened , and therefore taken with a EZ stapler. Cystic artery was similarly divided with the EZ stapler and the gallbladder was then dissected off the gallbladder bed using Harmonic scalpel and delivered through the epigastric trocar site. The patient had multiple stones within the gallbladder. The area of dissection was inspected. Jerel- Barragan drain was taken out through the right lateral trocar site and positioned in the area of the gallbladder bed and the trocars were then sequentially removed. The fascia at the 12 mm sites was closed with 0 Vicryl stitch and the skin with 4-0 Vicryl skin stitch. Dressing was applied. The patient was taken to the recovery room in satisfactory condition. Ricardo Browne MD /[id number]
== END 2020-05-17 10:54 | disposition home or self-care (01) ==
LOC: JP.SDS 06:03 → JP.MS 08:40 → JP.SDS 05-17 10:54
PROVIDERS: ATTEND Surgery
DX: K80.12 Calculus of gallbladder with acute and chronic cholecystitis without obstruction (principal); Z01.812 Encounter for preprocedural laboratory examination; F17.210 Nicotine dependence, cigarettes, uncomplicated; Z20.828 Contact with and (suspected) exposure to other viral communicable diseases; Z79.899 Other long term (current) drug therapy; Z91.040 Latex allergy status; Z88.8 Allergy status to other drugs, medicaments and biological substances
CPT/HCPCS: 36415; 47562; 81025; 82247; 84075; 85025; 87635; A9270; C9113; J0171; J0330; J0694; J1100; J1170; J2405; J2704; J2710; J2795; J3010; J3410; J3490; J7121; 88304; U0002

== ENCOUNTER 2022-03-22 21:07 | Emergency (ER) | payer MEDICAID ==
[2022-03-22] MEDS ORDERED: Meclizine 25 MG Tab PO ONE (22:29)
[2022-03-22] MEDS ORDERED: Ketorolac 30 MG/ML SDV IM ONE (22:29)
[2022-03-22 23:01] LABS: ESTIMATED GFR 94 mL/min (>60)
[2022-03-22 23:16] VITALS: BP 152/99; PULSE 82
[2022-03-22] MEDS ORDERED: LORazepam 1 MG Tab PO ONE (23:48)
== END 2022-03-23 00:24 | disposition home or self-care (01) ==
LOC: JP.ED 21:07
DX: R42 Dizziness and giddiness (principal); F17.210 Nicotine dependence, cigarettes, uncomplicated; E66.9 Obesity, unspecified; Z68.41 Body mass index [BMI] 40.0-44.9, adult; Z91.040 Latex allergy status; Z88.8 Allergy status to other drugs, medicaments and biological substances; Z79.899 Other long term (current) drug therapy; Z90.49 Acquired absence of other specified parts of digestive tract
CPT/HCPCS: 36415; 80053; 83605; 85025; 96374; 99284; A9270; J1885

== ENCOUNTER 2022-11-13 15:33 | Emergency (ER) | payer MEDICAID ==
[2022-11-13] MEDS ORDERED: Diphtheria,Pertussis(Acell),Tetanus Vaccine 0.5 ML Syringe IM ONE (15:42)
[2022-11-13 15:46] VITALS: BP 148/61; PULSE 87
== END 2022-11-13 16:10 | disposition home or self-care (01) ==
LOC: JP.ED 15:33
DX: S01.25XA Open bite of nose, initial encounter (principal); E66.9 Obesity, unspecified; Z68.41 Body mass index [BMI] 40.0-44.9, adult; Z91.040 Latex allergy status; Z88.5 Allergy status to narcotic agent; Z23 Encounter for immunization; W54.0XXA Bitten by dog, initial encounter
CPT/HCPCS: 12013; 90471; 90715; 99282; 99283-25

== ENCOUNTER 2023-03-18 18:15 | Emergency (ER) | payer MEDICAID ==
[2023-03-18 20:02] VITALS: BP 171/81; PULSE 87
[2023-03-18] MEDS ORDERED: Sodium Chloride 0.9% 10 ML Syringe FLUSH PRN (20:04)
[2023-03-18] MEDS ORDERED: fentaNYL 50 MCG/ML SDV IVPUSH ONE (20:05)
[2023-03-18 20:22] LABS: BASOPHILS ABSOLUTE AUTO 0.07 K/uL (0.00-0.10); BASOPHILS PERCENT AUTO 0.6 % (0.1-1.3); EOSINOPHILS ABSOLUTE AUTO 0.15 K/uL (0.00-0.40); EOSINOPHILS PERCENT AUTO 1.2 % (0.0-5.4); HEMATOCRIT 39.4 % (34.3-46.0); HEMOGLOBIN 13.5 g/dL (11.2-15.5); IMMATURE GRAN ABSOLUTE AUTO 0.04 K/uL (0.00-0.23); IMMATURE GRAN PERCENT AUTO 0.3 % (0.0-0.7); LYMPHOCYTES PERCENT AUTO 25.9 % (11.4-47.7); MEAN CORPUSCULAR HEMOGLOBIN 28.2 pg (31.6-35.5); MEAN CORPUSCULAR HGB CONC 34.3 g/dL (31.6-35.5); MEAN CORPUSCULAR VOLUME 82.4 fL (81.4-99.0); MONOCYTES ABSOLUTE AUTO 0.66 K/uL (0.20-0.90); MONOCYTES PERCENT AUTO 5.3 % (3.3-12.6); NEUTROPHILS ABSOLUTE AUTO 8.22 K/uL (1.0-7.6); NEUTROPHILS PERCENT AUTO 66.7 % (40.0-78.1); PLATELET COUNT,PLT 408 K/uL (130-375); RED BLOOD CELL COUNT 4.78 M/uL (3.77-5.24); WHITE BLOOD CELL COUNT,WBC 12.3 K/uL (3.2-11.0)
[2023-03-18 20:26] LABS: APPEARANCE,URINE CLEAR (CLEAR); BILIRUBIN,URINE NEGATIVE (NEGATIVE); COLOR,URINE YELLOW (YELLOW); GLUCOSE,URINE NEGATIVE (NEGATIVE); KETONES,URINE NEGATIVE (NEGATIVE); LEUKOCYTE ESTERASE,URINE SMALL (NEGATIVE); NITRITE,URINE NEGATIVE (NEGATIVE); OCCULT BLOOD,URINE NEGATIVE (NEGATIVE); PH,URINE 6.5 (5.0-8.0); PROTEIN,URINE NEGATIVE (NEGATIVE); UROBILINOGEN,URINE 0.2 EU/dL (0.2-1.0)
[2023-03-18 20:31] LABS: AMORPHOUS SEDIMENT,URINE NOT SEEN; BACTERIA,URINE MODERATE; EPITHELIAL CELLS,URINE MODERATE; MUCUS,URINE NOT SEEN; RBC,URINE 0-5 (0-5)
[2023-03-18 20:44] LABS: A/G RATIO 1.1 (1.2-2.2); ALANINE AMINOTRANSFERASE,ALT 28 U/L (12-78); ALBUMIN 3.7 g/dL (3.4-5.0); ALKALINE PHOSPHATASE 67 U/L (46-116); ANION GAP 12.7 mmol/L (5.0-14.0); ASPARTATE AMNIOTRANSFERASE,AST 18 U/L (15-37); BILIRUBIN TOTAL 0.3 mg/dL (0.2-1.0); BLOOD UREA NITROGEN,BUN 6 mg/dL (7-18); C-REACTIVE PROTEIN 0.19 mg/dL (0.0-0.3); CALCIUM 8.7 mg/dL (8.5-10.1); CARBON DIOXIDE,CO2 25 mmol/L (21-32); CHLORIDE,CL 103 mmol/L (100-108); CREATININE 0.8 mg/dL (0.6-1.0); ESTIMATED GFR 94 mL/min (>60); GLUCOSE RANDOM 95 mg/dL (74-106); POTASSIUM,K 3.7 mmol/L (3.6-5.2); PROTEIN TOTAL,TP 7.1 g/dL (6.4-8.2); SODIUM,NA 137 mmol/L (140-148)
== END 2023-03-18 22:25 | disposition home or self-care (01) ==
LOC: JP.ED 18:15
DX: R10.11 Right upper quadrant pain (principal); E66.9 Obesity, unspecified; Z88.8 Allergy status to other drugs, medicaments and biological substances; Z91.040 Latex allergy status; Z68.39 Body mass index [BMI] 39.0-39.9, adult
CPT/HCPCS: 36415; 71046; 76705; 80053; 81001; 81025; 83605; 83690; 84484; 85025; 86140; 96374; 99284; J3010; J3490; 99283

== ENCOUNTER 2024-05-13 17:38 | Emergency (ER) | payer MEDICAID ==
[2024-05-13 18:39] LABS: BASOPHILS ABSOLUTE AUTO 0.03 K/uL (0.00-0.10); BASOPHILS PERCENT AUTO 0.3 % (0.1-1.3); EOSINOPHILS ABSOLUTE AUTO 0.18 K/uL (0.00-0.40); EOSINOPHILS PERCENT AUTO 1.8 % (0.0-5.4); HEMATOCRIT 40.2 % (34.3-46.0); HEMOGLOBIN 13.6 g/dL (11.2-15.5); IMMATURE GRAN PERCENT AUTO 0.2 % (0.0-0.7); LYMPHOCYTES ABSOLUTE AUTO 3.89 K/uL (0.8-3.3); LYMPHOCYTES PERCENT AUTO 39.3 % (11.4-47.7); MEAN CORPUSCULAR HEMOGLOBIN 28.8 pg (31.6-35.5); MEAN CORPUSCULAR HGB CONC 33.8 g/dL (31.6-35.5); MEAN CORPUSCULAR VOLUME 85.2 fL (81.4-99.0); MONOCYTES ABSOLUTE AUTO 0.61 K/uL (0.20-0.90); MONOCYTES PERCENT AUTO 6.2 % (3.3-12.6); NEUTROPHILS ABSOLUTE AUTO 5.16 K/uL (1.0-7.6); NEUTROPHILS PERCENT AUTO 52.2 % (40.0-78.1); PLATELET COUNT,PLT 398 K/uL (130-375); RED BLOOD CELL COUNT 4.72 M/uL (3.77-5.24); WHITE BLOOD CELL COUNT,WBC 9.9 K/uL (3.2-11.0)
[2024-05-13 18:40] LABS: IMMATURE GRAN ABSOLUTE AUTO 0.02 K/uL (0.00-0.23)
[2024-05-13 18:49] LABS: A/G RATIO 1.1 (1.2-2.2); ALANINE AMINOTRANSFERASE,ALT 23 U/L (12-78); ALBUMIN 3.9 g/dL (3.4-5.0); ALKALINE PHOSPHATASE 61 U/L (46-116); ASPARTATE AMNIOTRANSFERASE,AST 14 U/L (15-37); BILIRUBIN TOTAL 0.3 mg/dL (0.2-1.0); BLOOD UREA NITROGEN,BUN 6 mg/dL (7-18); CALCIUM 9.2 mg/dL (8.5-10.1); CARBON DIOXIDE,CO2 25 mmol/L (21-32); CHLORIDE,CL 104 mmol/L (100-108); CREATININE 0.7 mg/dL (0.6-1.0); EST CRCL DRUG DOSING (CG) 88.56 mL/min; ESTIMATED GFR 109 mL/min (>60); GLUCOSE RANDOM 97 mg/dL (74-106); POTASSIUM,K 3.8 mmol/L (3.6-5.2); PROTEIN TOTAL,TP 7.3 g/dL (6.4-8.2); SODIUM,NA 139 mmol/L (140-148)
[2024-05-13 18:50] LABS: ANION GAP 13.8 mmol/L (5.0-14.0); C-REACTIVE PROTEIN < 0.50 mg/dL (<0.50)
[2024-05-13 19:52] LABS: APPEARANCE,URINE CLEAR (CLEAR); COLOR,URINE YELLOW (YELLOW)
[2024-05-13 19:53] LABS: BILIRUBIN,URINE NEGATIVE (NEGATIVE); GLUCOSE,URINE NEGATIVE (NEGATIVE); KETONES,URINE NEGATIVE (NEGATIVE); LEUKOCYTE ESTERASE,URINE SMALL (NEGATIVE); NITRITE,URINE NEGATIVE (NEGATIVE); OCCULT BLOOD,URINE NEGATIVE (NEGATIVE); PROTEIN,URINE NEGATIVE (NEGATIVE); UROBILINOGEN,URINE 0.2 EU/dL (0.2-1.0)
[2024-05-13 19:54] LABS: AMORPHOUS SEDIMENT,URINE NOT SEEN; BACTERIA,URINE FEW; EPITHELIAL CELLS,URINE FEW; MUCUS,URINE NOT SEEN; RBC,URINE NOT SEEN (0-5)
[2024-05-13] MEDS: Ketorolac 30 MG/ML SDV IVPUSH ONE (20:05)
[2024-05-13 20:15] VITALS: BP 132/76; PULSE 78
== END 2024-05-13 20:40 | disposition home or self-care (01) ==
LOC: JP.ED 17:38
DX: K59.00 Constipation, unspecified (principal); E66.9 Obesity, unspecified; Z90.49 Acquired absence of other specified parts of digestive tract; Z79.899 Other long term (current) drug therapy; Z91.040 Latex allergy status; Z88.8 Allergy status to other drugs, medicaments and biological substances; Z68.39 Body mass index [BMI] 39.0-39.9, adult
CPT/HCPCS: 36415; 74176; 80053; 81001; 83690; 85025; 86140; 96374; 99284; J1885

== ENCOUNTER 2025-03-06 20:49 | Emergency (ER) | payer MEDICAID ==
[2025-03-06 21:14] VITALS: BP 164/89; PULSE 78
[2025-03-06] MEDS: Lidocaine 2% Viscous Solution 15 ML UD PO PRN (21:45)
[2025-03-06] MEDS: Lidocaine 2% Viscous Solution 15 ML UD PO ONE (22:28)
== END 2025-03-06 22:33 | disposition home or self-care (01) ==
LOC: JP.ED 20:49
DX: S27.818A Other injury of esophagus (thoracic part), initial encounter (principal); E66.9 Obesity, unspecified; Z68.39 Body mass index [BMI] 39.0-39.9, adult; Z90.49 Acquired absence of other specified parts of digestive tract; Z87.891 Personal history of nicotine dependence; Z88.8 Allergy status to other drugs, medicaments and biological substances; Z91.040 Latex allergy status; Z79.899 Other long term (current) drug therapy; W44.F3XA Food entering into or through a natural orifice, initial encounter
CPT/HCPCS: 99283; J3490; A9270-GY